=== PATIENT | female | born 1980 | race Two or more races ===

== ENCOUNTER 2021-07-13 13:34 | Emergency (ER) | payer OTHER ==
[~2021-07-13] VITALS: Ht 180.3 cm; Wt 176.9 kg
[2021-07-13] MEDS ORDERED: SYNTHROID200 MCG (14:00)
[2021-07-13] MEDS ORDERED: BENTYL10 MG/1 ML (14:00)
== END 2021-07-13 17:43 | disposition home or self-care (01) ==
LOC: ER 13:34
DX: K21.9 Gastro-esophageal reflux disease without esophagitis (principal); K29.70 Gastritis, unspecified, without bleeding; K29.90 Gastroduodenitis, unspecified, without bleeding; R11.10 Vomiting, unspecified; Z88.6 Allergy status to analgesic agent; Z88.0 Allergy status to penicillin; Z88.8 Allergy status to other drugs, medicaments and biological substances